=== PATIENT | female | born 1950 | race Caucasian/White ===

== ENCOUNTER 2020-10-24 11:44 | Outpatient (REF) | payer OTHER, SELFPAY | END 2020-10-24 11:45 | disposition home or self-care (01) | LOC: HO.LAB 11:44 | PROVIDERS: Visit Provider Internal Medicine | DX: Z20.822 Contact with and (suspected) exposure to COVID-19 (principal) | CPT/HCPCS: 36415; C9803; U0003; U0005 ==

== ENCOUNTER 2021-04-03 13:07 | Outpatient (REF) | payer OTHER, SELFPAY ==
--- NOTE | ~2021-04-03 | MM_ITS ---
EXAMINATION: MM SCREENING DIGITAL BREAST TOMOSYNTHESIS, BILATERAL CLINICAL INFORMATION: Screening. Asymptomatic. The lifetime risk of breast cancer based on the Tyrer-Cuzick Model is 3%. COMPARISON: Mammography: 03/29/2020, 03/10/2019, 03/09/2018 TECHNIQUE: Digital breast tomosynthesis is performed in both the craniocaudal and mediolateral oblique views along with computer-aided detection (CAD). Synthesized 2D images are generated from the tomosynthesis. FINDINGS: The breasts are heterogeneously dense, which may obscure small masses (ACR BI-RADS breast composition Category c). There are no significant masses, abnormal calcifications, or other abnormalities. Parenchymal pattern is similar to prior studies. No developing density. The axilla and skin contours are unremarkable. MM/MM tomosynthesis screening BI IMPRESSION: No mammographic evidence of malignancy. ASSESSMENT: BI-RADS 1: Negative RECOMMENDATION: Routine annual mammography screening. This patient's information was entered into a reminder system with a target due date for their next mammogram.
== END 2021-04-03 13:08 | disposition home or self-care (01) ==
LOC: HO.MAMMO 13:07
PROVIDERS: Visit Provider Internal Medicine
DX: Z12.31 Encounter for screening mammogram for malignant neoplasm of breast (principal)
CPT/HCPCS: 77062; 77063; 77066; 77067

== ENCOUNTER 2021-04-16 10:06 | Outpatient (REF) | payer OTHER, SELFPAY ==
[2021-04-16 11:24] LABS: Alanine Aminotransferase 17 U/L (0-31); Albumin Level 4.4 g/dL (3.5-5.0); Alkaline Phosphatase 49 U/L (39-117); Anion Gap 12 (12-20); Aspartate Amino Transferase 20 U/L (5-31); Bilirubin Total 0.8 mg/dL (0.0-1.0); Blood Urea Nitrogen 21 mg/dL (9-16); Calcium 9.4 mg/dL (8.4-10.2); Carbon Dioxide 30 mmol/L (22-29); Chloride 105 mmol/L (96-108); Cholesterol 176 mg/dL; Estimated Glomerular Filt Rate > 60; Glucose Fasting 96 mg/dL (60-99); HDL Cholesterol 62 mg/dL; LDL Cholesterol Calculated 104 mg/dl; Potassium 4.5 mmol/L (3.3-5.1); Sodium 142 mmol/L (135-145); Total Protein 7.3 g/dL (6.5-8.0); Triglycerides 54 mg/dL
== END 2021-04-16 10:07 | disposition home or self-care (01) ==
LOC: HO.LAB 10:06
PROVIDERS: PCP Internal Medicine; Visit Provider Internal Medicine
DX: E78.5 Hyperlipidemia, unspecified (principal)
CPT/HCPCS: 36415; 80053; 80061

== ENCOUNTER 2021-04-23 13:22 | Outpatient (REF) | payer OTHER, SELFPAY ==
--- NOTE | ~2021-04-23 | MM_ITS ---
EXAMINATION: BONE DENSITOMETRY CLINICAL INDICATION: Menopause. COMPARISON: Previous BD dated 11/15/2018 and baseline BD dated 12/23/2006. TECHNIQUE: Using a [employer] DXA System (software version: 13.1) manufactured by [employer], dual-energy x-ray absorptiometry was performed of the lumbar spine and left hip. The images are of good technical quality. Summary results are attached. FINDINGS: AP SPINE L1-L4: Current: BMD 1.022 g/cm2, Z-score 0.6, T-score -1.3, osteopenia, 0.4% decrease from previous, 11.1% decrease from baseline (<5% change is not significant). Prior: BMD 1.026 g/cm2. Baseline: BMD 1.150 g/cm2. LEFT FEMUR, NECK: Current: BMD 0.828 g/cm2, Z-score 0.4, T-score -1.5, osteopenia. Prior: BMD 0.877 g/cm2. Baseline: BMD 0.973 g/cm2. LEFT FEMUR, TOTAL: Current: BMD 0.829 g/cm2, Z-score 0.3, T-score -1.4, osteopenia, 5.3% decrease from previous, 18.6% decrease from baseline (<5% change is not significant). Prior: BMD 0.875 g/cm2. Baseline: BMD 1.019 g/cm2. IDENTIFIED RISK FACTORS: Menopause. HISTORY OF FRACTURE: None listed. MEDICATIONS: Calcium, vitamin D. MM/XR DEXA axial skeleton IMPRESSION: 1. DIAGNOSIS: Osteopenia based on the lowest T-score value of -1.5 in the femoral neck applying World Health Organization criteria. 2. 10-YEAR FRACTURE RISK PREDICTION, FRAX: Major osteoporotic fracture (clinical spine, forearm, hip or shoulder) 9.5%. Hip fracture 1.5%. 3. Treatment Recommendations: NOF guidelines recommend consideration for treatment in postmenopausal women and men age 50 and older presenting with the following: -A hip or vertebral (clinical or morphometric) fracture. -T-score less than or equal to -2.5 at the femoral neck or spine after appropriate evaluation to exclude secondary causes. -Low bone mass at the hip or spine and a 10-year fracture probability by FRAX of greater than or equal to 3% for hip fracture or greater than or equal to 20% for major osteoporotic fracture based on the [place] adapted WHO algorithm. 4. Other Recommendations: All treatment decisions require clinical judgment and consideration of individual patient factors, including patient preferences, comorbidities, previous drug use, risk factors not captured in the FRAX model (e.g. frailty, falls, vitamin D deficiency, increased bone turnover, interval significant decline in bone density) and possible under or overestimation of fracture risk by FRAX. Additional medical evaluation for secondary cause of low bone mineral density may be appropriate. FUTURE SCAN RECOMMENDATION: People with diagnosed cases of osteoporosis or at high risk for fracture should have regular bone mineral density tests. For patients eligible for Medicare, routine testing is allowed once every 2 years. The testing frequency can be increased to one year for patients who have rapidly progressing disease, those who are receiving or discontinuing medical therapy to restore bone mass, or have additional risk factors.
== END 2021-04-23 13:23 | disposition home or self-care (01) ==
LOC: HO.MAMMO 13:22
PROVIDERS: PCP Internal Medicine; Visit Provider Internal Medicine
DX: Z13.820 Encounter for screening for osteoporosis (principal); Z78.0 Asymptomatic menopausal state
CPT/HCPCS: 77080

== ENCOUNTER 2022-04-06 11:06 | Outpatient (REF) | payer OTHER, SELFPAY ==
--- NOTE | ~2022-04-06 | MM_ITS ---
EXAMINATION: MM SCREENING DIGITAL BREAST TOMOSYNTHESIS, BILATERAL CLINICAL INFORMATION: Screening. Asymptomatic. The lifetime risk of breast cancer based on the Tyrer-Cuzick Model is 3%. COMPARISON: Mammography: 04/03/2021, 04/08/2020, 03/29/2020, 04/09/2019 TECHNIQUE: Digital breast tomosynthesis is performed in both the craniocaudal and mediolateral oblique views along with computer-aided detection (CAD). Synthesized 2D images are generated from the tomosynthesis. Additional exaggerated left CC view is provided. FINDINGS: The breasts are heterogeneously dense, which may obscure small masses (ACR BI-RADS breast composition Category c). There are no significant masses, abnormal calcifications, or other abnormalities. Parenchymal pattern is similar to prior studies. The axilla and skin contours are unremarkable. MM/MM tomosynthesis screening BI IMPRESSION: No mammographic evidence of malignancy. ASSESSMENT: BI-RADS 1: Negative RECOMMENDATION: Routine annual mammography screening. This patient's information was entered into a reminder system with a target due date for their next mammogram.
== END 2022-04-06 11:07 | disposition home or self-care (01) ==
LOC: HO.MAMMO 11:06
PROVIDERS: Visit Provider Obstetrics & Gynecology
DX: Z12.31 Encounter for screening mammogram for malignant neoplasm of breast (principal)
CPT/HCPCS: 77063; 77067

== ENCOUNTER 2023-04-12 10:52 | Outpatient (REF) | payer OTHER, SELFPAY ==
--- NOTE | ~2023-04-12 | MM_ITS ---
EXAMINATION: MM SCREENING DIGITAL BREAST TOMOSYNTHESIS, BILATERAL CLINICAL INFORMATION: Screening. Asymptomatic. The lifetime risk of breast cancer based on the Tyrer-Cuzick Model is 5.%. COMPARISON: Mammography: This study is compared with prior exams dating back to 2018. TECHNIQUE: Digital breast tomosynthesis is performed in both the craniocaudal and mediolateral oblique views along with computer-aided detection (CAD). Synthesized 2D images are generated from the tomosynthesis. FINDINGS: There are scattered areas of fibroglandular density (ACR BI-RADS breast composition Category b). There are no significant masses, abnormal calcifications, or other abnormalities. MM/MM tomosynthesis screening BI IMPRESSION: No mammographic evidence of malignancy. ASSESSMENT: BI-RADS BI-RADS 1 - Negative RECOMMENDATION: Routine annual mammography screening. 1 year F/U This examination should not preclude the clinical evaluation of a suspicious palpable abnormality. This patient's information was entered into a reminder system with a target due date for their next mammogram.
== END 2023-04-12 10:53 | disposition home or self-care (01) ==
LOC: HO.MAMMO 10:52
PROVIDERS: PCP Internal Medicine; Visit Provider Internal Medicine
DX: Z12.31 Encounter for screening mammogram for malignant neoplasm of breast (principal)
CPT/HCPCS: 77063; 77067

== ENCOUNTER → 2023-04-12 11:00 | Outpatient (BNV) | payer OTHER, SELFPAY | PROVIDERS: PCP Internal Medicine; Visit Provider Radiology Diagnostic Radiology | DX: Z12.31 Encounter for screening mammogram for malignant neoplasm of breast (principal) | CPT/HCPCS: 77063; 77067 ==

== ENCOUNTER 2023-04-19 10:54 | Outpatient (REF) | payer OTHER, SELFPAY ==
[2023-04-19 14:25] LABS: Alanine Aminotransferase 24 U/L (0-31); Albumin Level 4.4 g/dL (3.5-5.0); Alkaline Phosphatase 48 U/L (39-117); Anion Gap 16 (12-20); Aspartate Amino Transferase 21 U/L (5-31); Bilirubin Total 0.8 mg/dL (0.0-1.0); Blood Urea Nitrogen 17 mg/dL (9-16); Calcium 9.5 mg/dL (8.4-10.2); Carbon Dioxide 27 mmol/L (22-29); Chloride 104 mmol/L (96-108); Cholesterol 203 mg/dL; Estimated Glomerular Filt Rate > 60; Glucose Fasting 88 mg/dL (60-99); HDL Cholesterol 65 mg/dL; LDL Cholesterol Calculated 122 mg/dl; Potassium 3.9 mmol/L (3.3-5.1); Sodium 143 mmol/L (135-145); Total Protein 7.7 g/dL (6.5-8.0); Triglycerides 81 mg/dL
== END 2023-04-19 10:55 | disposition home or self-care (01) ==
LOC: HO.10HDL 10:54
PROVIDERS: Visit Provider Internal Medicine
DX: Z00.00 Encounter for general adult medical examination without abnormal findings (principal); E78.5 Hyperlipidemia, unspecified
CPT/HCPCS: 36415; 80053; 80061

== ENCOUNTER 2023-04-27 10:07 | Outpatient (AMB) | payer OTHER, SELFPAY ==
--- NOTE | 2023-04-27 10:09 | A.OFFPC_ITS ---
Vital Signs 04/27/23 10:13 Height 5 ft 4 in Weight 122 lb BMI 20.9 BP 120/80 Blood Pressure Location Lt brachial Position Sitting Pulse 65 Pulse Source Pulse Oximeter Pulse Oximetry (%) 98 Oxygen Delivery Method Room Air Intake Visit Reasons: Annual Exam Intake Note: Patient is here today for a physical. Physician Chief Of Pathology Required: No Accompanied by: Self / Same As Patient Allergies cephalexin [From KEFLEX] Allergy (Intermediate, Verified 04/27/23 10:28) NAUSEA droperidol [From INAPSINE] Allergy (Intermediate, Verified 04/27/23 10:28) HYPOTENSION influenza virus vaccine, specific [FLU VACCINE] Allergy (Intermediate, Verified 04/27/23 10:28) HYPERTHERMIA metoclopramide [From REGLAN] Allergy (Intermediate, Verified 04/27/23 10:28) ANXIETY Inapsine Allergy (Severe, Uncoded 04/27/23 10:28) low bp Influenza A (H1N1) Monoval PF Allergy (Severe, Uncoded 04/27/23 10:28) high fever Medication List - Last Reconciled 04/27/23 by Bessie Pelayo MD loratadine (Claritin) 10 mg PO DAILY simvastatin 10 mg PO QPM Tobacco use date assessed: 04/27/23 Fall risk assessment: No Falls in past year Last assessed Fall Risk: 04/27/23 Dental Screening Did you have a dental visit in the last 12 months?: Yes Did you have a dental problem in the last 6 months where you did not have access to dental care?: No Was dental information given to patient?: Patient has dentist HPI HPI Comments History of Present Illness Details This is a 73-year-old female that comes for her physical exam. Last mammogram was done last month and results are still pending. Last colonoscopy was 2019 and next colonoscopy should be 2024. No chest pain or shortness of breath. No change in bowel or bladder habits. [facility]LY [facility] Medical History Allergic rhinitis Dyslipidemia Surgical History Basal cell carcinoma History of appendectomy History of bowel resection History of myomectomy Family History (Updated 04/27/23 @ 10:32 by Bessie Pelayo MD) Mother Dementia Hypertension Macular degeneration Father Heart attack Atrial fibrillation Sister Substance use disorder Social History Housing: House Alcohol intake: current Alcohol intake frequency: holidays/special occasions only Alcohol type: wine Patient Tobacco Use Status: Never used Tobacco e-Cigarette/Vaping Use: Never Used Second Hand Smoke Exposure: No service: No Current occupational status: retired Cognitive needs: No Hearing needs: No Vision needs: No Questionnaire PHQ-9 Over the last 2 weeks, how often have you been bothered by any of the following problems? 1. Little interest or pleasure in doing things: not at all 2. Feeling down, depressed, or hopeless: not at all 3. Trouble falling or staying asleep, or sleeping too much: not at all 4. Feeling tired or having little energy: not at all 5. Poor appetite or overeating: not at all 6. Feeling bad about yourself - or that you are a failure or have let yourself or your family down: not at all 7. Trouble concentrating on things, such as reading the newspaper or watching television: not at all 8. Moving or speaking so slowly that other people could have noticed. Or the opposite - being so fidgety or restless that you have been moving around a lot more than usual: not at all 9. Thoughts that you would be better off or of hurting yourself in some way: not at all Total score: 0 Depression Screening Interpretation: Negative 78629 - PHQ-9 Billing: Yes Source: Developed by Drs. Mike Salcido, Lydia Tom, Red Massey and colleagues, with an educational inderjit from [employer]. Thrive Questionnaire Date Thrive assessed: 04/27/23 I am a: Patient What is your living situation today?: I have a steady place to live Within the past 12 months, did the food you bought not last and you didn't have the money to get more?: I choose not to answer this question Within the past 12 months, did you worry whether your food would run out before you got money to buy more?: I choose not to answer this question Do you have trouble paying for medicines?: No Do you have trouble getting transportation to medical appointments?: No Do you have trouble paying your heating and electricity bill?: No Do you have trouble taking care of your child, family member or friend?: No Do you have trouble with day-to-day activities such as bathing, preparing meals, shopping, managing finances, etc.?: No Are you currently unemployed and looking for a job?: No Are you interested in more education?: No AUDIT C Alcohol Use Questionnaire (AUDIT-C) 1. How often do you have a drink containing alcohol?: Monthly or less 2. How many drinks containing alcohol do you have on a typical day when you are drinking?: 1 or 2 3. How often do you have six or more drinks on one occasion?: Never Total Score: 1 Score Reviewed/Action Taken: No PONCE-7 AMB Questionnaire PONCE-7 Date PONCE - 7 assessed: 04/27/23 Feeling nervous, anxious, or on edge: 0 = Not at all Not being able to stop or control worryin = Not at all Worrying too much about different things: 0 = Not at all Trouble relaxin = Not at all Being so restless that it is hard to sit still: 0 = Not at all Becoming easily annoyed or irritable: 0 = Not at all Feeling afraid as if something awful might happen: 0 = Not at all Total PONCE-7 score (0-4 normal; 5-9 mild; 10-14 moderate; 15-21 severe): 0 Source: Developed by Drs. Mike Salcido, Lydia Tom, Red Massey and colleagues, with an educational inderjit from [employer]. PONCE-7 Assessment Billing PONCE-7 Assessment Tool: PONCE-7 Assessment 50314 Review of Systems Const All systems reviewed & are unremarkable except as noted in HPI and below Eyes Reports no additional complaints, Denies change in vision and Denies other visual disturbances Card Denies chest pain at rest, Denies chest pain with activity, Denies edema, Denies irregular heart rhythm, Denies claudication, Denies dyspnea, Denies dyspnea on exertion, Denies orthopnea, Denies paroxysmal nocturnal dyspnea and Denies slow heart rate Resp Denies cough, Denies dyspnea and Denies dyspnea on exertion GI Denies abdominal pain, Denies change in bowel habits, Denies excessive flatus, Denies nausea and Denies vomiting Denies urinary incontinence, Denies urinary hesitancy and Denies urinary urgency Musc Denies abnormal gait, Denies atrophy, Denies deformity and Denies limited range of motion Skin/Breast Denies bleeding lesions, Denies changing lesions and Denies rash Neuro Denies abnormal gait and Denies lack of coordination Physical exam (Primary Care) Vital Signs: Last Vital Signs Pulse 65 04/27/23 10:13 BP 120/80 04/27/23 10:13 Pulse Ox 98 04/27/23 10:13 Oxygen Delivery Method Room Air 04/27/23 10:13 BMI result Body Mass Index 20.9 Tobacco/Smoking Status: Tobacco use Status Tobacco use date assessed 04/27/23 04/27/23 10:19 Patient Tobacco Use Status Never used Tobacco 04/27/23 10:09 e-Cigarette/Vaping Use Never Used 04/27/23 10:09 PHQ-9: PHQ-9 Score PHQ-9: Total score 0 04/27/23 10:19 Depression Screening Interpretation: Negative Thrive Assessment: Date of Thrive Assessment Date Thrive assessed 04/27/23 04/27/23 10:19 Const Orientation/consciousness: patient oriented x3 HENMT Head: Yes normal to inspection, Yes normocephalic and Yes atraumatic Ears: external ears normal Eyes General: appearance normal, both eyes and all related structures Eyelids: Yes eyelids normal Conjunctivae: conjunctivae normal Neck Neck: Yes normal visual inspection and Yes supple Resp Effort & Inspection: normal respiratory effort Auscultation: clear to auscultation bilaterally Cardio Jugular venous distension: no JVD Rate: regular rate Rhythm: regular rhythm Heart sounds: S1 normal heart sound present and S2 normal heart sound present GI Inspection: Yes normal to inspection Palpation (GI): Soft to palpation and nontender Auscultation: normal bowel sounds Skin General skin exam: no rashes or lesions noted Neuro General: patient oriented x3 and no focal motor deficits Extrem General: Yes full ROM Psych Appearance: grossly normal Assessment and Plan Assessment & Plan (1) Encounter for physical examination: Code(s): Z00.00 - Encounter for general adult medical examination without abnormal findings Plan: Repeat in a year Coding Level of Care Code Est Pt Prev Care >65y(72840) Diagnoses Encounter for physical examination Z00.00 Additional Codes PONCE-7 Assessment Billing - PONCE-7 Assessment Tool: PONCE-7 Assessment [id number] ([id number]) Time Spent (min) 30
[2023-04-27 10:13] VITALS: BP 120/80; PULSE 65; O2SAT 98; BMI 20.9
== END 2023-04-27 10:38 | disposition home or self-care (01) ==
PROVIDERS: PCP Internal Medicine; Visit Provider Internal Medicine
DX: Z00.00 Encounter for general adult medical examination without abnormal findings (principal)
CPT/HCPCS: 99397

== ENCOUNTER 2024-04-13 10:19 | Outpatient (REF) | payer OTHER, SELFPAY | END 2024-04-13 10:20 | disposition home or self-care (01) | LOC: HO.MAMMO 10:19 | PROVIDERS: PCP Internal Medicine; Visit Provider Internal Medicine | DX: Z12.31 Encounter for screening mammogram for malignant neoplasm of breast (principal) | CPT/HCPCS: 77063; 77067 ==

== ENCOUNTER → 2024-04-13 10:30 | Outpatient (BNV) | payer OTHER, SELFPAY | PROVIDERS: PCP Internal Medicine; Visit Provider Radiology Diagnostic Radiology | DX: Z12.31 Encounter for screening mammogram for malignant neoplasm of breast (principal) | CPT/HCPCS: 77063; 77067 ==

== ENCOUNTER 2024-04-25 11:23 | Outpatient (REF) | payer OTHER, SELFPAY ==
[2024-04-25 14:07] LABS: Alanine Aminotransferase 21 U/L (0-31); Albumin Level 4.2 g/dL (3.5-5.0); Alkaline Phosphatase 51 U/L (39-117); Anion Gap 12 (12-20); Aspartate Amino Transferase 20 U/L (5-31); Bilirubin Total 0.5 mg/dL (0.0-1.0); Blood Urea Nitrogen 18 mg/dL (9-16); Calcium 9.5 mg/dL (8.4-10.2); Carbon Dioxide 30 mmol/L (22-29); Chloride 104 mmol/L (96-108); Cholesterol 184 mg/dL (<200); Estimated Glomerular Filt Rate > 60; Glucose Fasting 101 mg/dL (60-99); HDL Cholesterol 60 mg/dL (>40); LDL Cholesterol Calculated 107 mg/dL (<100); Potassium 4.4 mmol/L (3.3-5.1); Sodium 142 mmol/L (135-145); Total Protein 7.3 g/dL (6.5-8.0); Triglycerides 87 mg/dL (<150)
[2024-04-25 14:27] LABS: Vitamin D 25-OH Total 78.8 ng/mL (>30)
== END 2024-04-25 11:24 | disposition home or self-care (01) ==
LOC: HO.10HDL 11:23
PROVIDERS: Visit Provider Internal Medicine
DX: Z00.00 Encounter for general adult medical examination without abnormal findings (principal); E78.5 Hyperlipidemia, unspecified; E55.9 Vitamin D deficiency, unspecified
CPT/HCPCS: 36415; 80053; 80061; 82306

== ENCOUNTER 2024-05-01 10:09 | Outpatient (AMB) | payer OTHER, SELFPAY ==
--- NOTE | 2024-05-01 10:12 | MHC.PC.OV ---
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 Accompanied by: Self / Same As Patient Allergies cephalexin [From KEFLEX] Allergy (Intermediate, Verified 05/01/24 10:27) NAUSEA droperidol [From INAPSINE] Allergy (Intermediate, Verified 05/01/24 10:27) HYPOTENSION influenza virus vaccine, specific [FLU VACCINE] Allergy (Intermediate, Verified 05/01/24 10:27) HYPERTHERMIA metoclopramide [From REGLAN] Allergy (Intermediate, Verified 05/01/24 10:27) ANXIETY Inapsine Allergy (Severe, Uncoded 05/01/24 10:27) low bp Influenza A (H1N1) Monoval PF Allergy (Severe, Uncoded 05/01/24 10:27) high fever Medication List - Last Reconciled 05/01/24 by Bessie Pelayo MD simvastatin 10 mg PO QPM Tobacco use date assessed: 05/01/24 Fall risk assessment: No Falls in past year Last assessed Fall Risk: 05/01/24 Dental Screening Dental Screen Date: 05/01/24 Did you have a dental visit in the last 12 months?: Yes Did you have a dental problem in the last 6 months where you did not have access to dental care?: No Was dental information given to patient?: Patient has dentist HPI HPI Comments History of Present Illness Details This is a 74-year-old female that comes for her physical exam. Mammogram done last month and results are still pending. Colonoscopy done 2019 and next should be 2024. Bone density done 2020 and will be order. Denies any chest pain or shortness on breath. No acute complaints. Labs were discussed. [facility] Medical History Allergic rhinitis Dyslipidemia Surgical History Basal cell carcinoma History of bowel resection History of appendectomy History of myomectomy Family History Mother Dementia Hypertension Macular degeneration Father Heart attack Atrial fibrillation Sister Substance use disorder Social History Housing: House Alcohol intake: current Alcohol intake frequency: holidays/special occasions only Alcohol type: wine Patient Tobacco Use Status: Never used Tobacco e-Cigarette/Vaping Use: Never Used Second Hand Smoke Exposure: No service: No Current occupational status: retired Cognitive needs: No Hearing needs: No Vision needs: No Questionnaire PHQ-9 Over the last 2 weeks, how often have you been bothered by any of the following problems? 1. Little interest or pleasure in doing things: not at all 2. Feeling down, depressed, or hopeless: not at all 3. Trouble falling or staying asleep, or sleeping too much: not at all 4. Feeling tired or having little energy: not at all 5. Poor appetite or overeating: not at all 6. Feeling bad about yourself - or that you are a failure or have let yourself or your family down: not at all 7. Trouble concentrating on things, such as reading the newspaper or watching television: not at all 8. Moving or speaking so slowly that other people could have noticed. Or the opposite - being so fidgety or restless that you have been moving around a lot more than usual: not at all 9. Thoughts that you would be better off or of hurting yourself in some way: not at all Total score: 0 Depression Screening Interpretation: Negative Depression Screening Done: Yes 78506 - PHQ-9 Billing: Yes Source: Developed by Drs. Mike Salcido, Lydia Tom, Red Massey and colleagues, with an educational inderjit from [employer] Thrive Questionnaire Date Thrive assessed: 05/01/24 I am a: Patient What is your living situation today?: I have a steady place to live Within the past 12 months, did the food you bought not last and you didn't have the money to get more?: Never true Within the past 12 months, did you worry whether your food would run out before you got money to buy more?: Never true Do you have trouble paying for medicines?: No Do you have trouble getting transportation to medical appointments?: No Do you have trouble paying your heating and electricity bill?: No Do you have trouble taking care of your child, family member or friend?: No Do you have trouble with day-to-day activities such as bathing, preparing meals, shopping, managing finances, etc.?: No Are you currently unemployed and looking for a job?: No Are you interested in more education?: No Please select the resources that you would like help with: None Currently or been in a relationship where the following occur: No concerns reported THRIVE Score: 0 AUDIT C Alcohol Use Questionnaire (AUDIT-C) 1. How often do you have a drink containing alcohol?: Monthly or less 2. How many drinks containing alcohol do you have on a typical day when you are drinking?: 1 or 2 3. How often do you have six or more drinks on one occasion?: Never Total Score: 1 Score Reviewed/Action Taken: No PONCE-7 AMB Questionnaire PONCE-7 Date PONCE - 7 assessed: 05/01/24 Feeling nervous, anxious, or on edge: 0 = Not at all Not being able to stop or control worryin = Not at all Worrying too much about different things: 0 = Not at all Trouble relaxin = Not at all Being so restless that it is hard to sit still: 0 = Not at all Becoming easily annoyed or irritable: 0 = Not at all Feeling afraid as if something awful might happen: 0 = Not at all Total PONCE-7 score (0-4 normal; 5-9 mild; 10-14 moderate; 15-21 severe): 0 Source: Developed by Drs. Mike Salcido, Lydia Tom, Red Massey and colleagues, with an educational inderjit from [employer] PONCE-7 Assessment Billing PONCE-7 Assessment Tool: PONCE-7 Assessment 11205 Review of Systems Const All systems reviewed & are unremarkable except as noted in HPI and below Card Denies chest pain at rest, Denies chest pain with activity, Denies edema, Denies irregular heart rhythm, Denies claudication, Denies dyspnea, Denies dyspnea on exertion, Denies orthopnea, Denies paroxysmal nocturnal dyspnea and Denies slow heart rate Resp Denies cough, Denies dyspnea and Denies dyspnea on exertion GI Denies abdominal pain, Denies change in bowel habits, Denies excessive flatus, Denies nausea and Denies vomiting Denies urinary incontinence, Denies urinary hesitancy and Denies urinary urgency Neuro Denies confusion Psych Denies confusion Physical exam (Primary Care) Vital Signs: Last Vital Signs BP 122/80 05/01/24 10:17 BMI result Body Mass Index 21.3 Tobacco/Smoking Status: Tobacco use Status Tobacco use date assessed 05/01/24 05/01/24 10:21 Patient Tobacco Use Status Never used Tobacco 05/01/24 10:12 e-Cigarette/Vaping Use Never Used 05/01/24 10:12 PHQ-9: PHQ-9 Score PHQ-9: Total score 0 05/01/24 11:08 Depression Screening Interpretation: Negative Thrive Assessment: Date of Thrive Assessment Date Thrive assessed 05/01/24 05/01/24 10:21 Currently or been in a relationship where the following occur: No concerns reported Const General: No confusion Orientation/consciousness: patient oriented x3 and No confusion HENMT Head: Yes normal to inspection, Yes normocephalic and Yes atraumatic Ears: external ears normal Eyes General: appearance normal, both eyes and all related structures Eyelids: Yes eyelids normal Conjunctivae: conjunctivae normal Neck Neck: Yes normal visual inspection and Yes supple Resp Effort & Inspection: normal respiratory effort Auscultation: clear to auscultation bilaterally Cardio Jugular venous distension: no JVD Rate: regular rate Rhythm: regular rhythm Heart sounds: S1 normal heart sound present and S2 normal heart sound present GI Inspection: Yes normal to inspection Palpation (GI): Soft to palpation and nontender Auscultation: normal bowel sounds Skin General skin exam: no rashes or lesions noted Neuro General: patient oriented x3, no focal motor deficits and No confusion Extrem General: Yes full ROM Psych Appearance: grossly normal Immunizations pneumoc 20-miky conj-dip cr(PF) 0.5 mL IM syringe Performing Provider: Bessie Pelayo MD Performing Location: [facility] Administered by: TANISHA Del Real on 05/01/24 10:49 Dose Route Admin Location Dispensed Lot Number Expiration Date [employer] 0.5 mL IM Right Deltoid 0.5 mL [id number] 02/18/25 4691-8135-80 WYETH/PFIZER VIS Given Date VIS Provided VIS Publication Date 05/01/24 Single Vaccine 21 Eligibility Eligibility Date Funding Source Not [facility] Eligible 05/01/24 Private tetanus-diphtheria toxoids-Td 2 Lf unit-2 Lf unit/0.5 mL IM suspension Performing Provider: Bessie Pelayo MD [facility] Administered by: TANISHA Del Real on 05/01/24 10:49 Dose Route Admin Location Dispensed Lot Number Expiration Date [employer] 0.5 mL IM Left Deltoid 0.5 mL [id number] 10/30/24 [address]-7 [employer] VIS Given Date VIS Provided VIS Publication Date 05/01/24 Single Vaccine 21 Eligibility Eligibility Date Funding Source Not [facility] Eligible 05/01/24 State funds Assessment and Plan Assessment & Plan (1) Encounter for physical examination: Code(s): Z00.00 - Encounter for general adult medical examination without abnormal findings Plan: Repeat in a year. Orders: Orders XR DEXA axial skeleton Today N95.9 - Unspecified menopausal and perimenopausal disorder Td State Immunization Today Z23 - Encounter for immunization Pneumococcal 20 Immunization Today Z23 - Encounter for immunization Coding Level of Care Code Est Pt Prev Care >65y(50193) Diagnoses Encounter for physical examination Z00.00 Additional Codes PONCE-7 Assessment Billing - PONCE-7 Assessment Tool: PONCE-7 Assessment 29317 ([id number]) Time Spent (min) 30
[2024-05-01 10:17] VITALS: BP 122/80; BMI 21.3
== END 2024-05-01 10:48 | disposition home or self-care (01) ==
PROVIDERS: PCP Internal Medicine; Visit Provider Internal Medicine
DX: Z00.00 Encounter for general adult medical examination without abnormal findings (principal); Z23 Encounter for immunization
CPT/HCPCS: 90471; 90472; 90677; 90714; 99397

== ENCOUNTER 2024-05-30 08:55 | Outpatient (REF) | payer OTHER, SELFPAY ==
--- NOTE | ~2024-05-30 | MM_ITS ---
EXAMINATION: BONE DENSITOMETRY CLINICAL INDICATION: Menopause. COMPARISON: Previous BD dated 04/23/2021 and baseline BD dated 12/23/2006. TECHNIQUE: Using a [employer] DXA System (software version: 13.1) manufactured by [employer] dual-energy x-ray absorptiometry was performed of the lumbar spine and left hip. The images are of good technical quality. Summary results are attached. FINDINGS: LEFT FEMUR, NECK: Current: BMD 0.829 g/cm2, Z-score 0.6, T-score -1.5, osteopenia. Prior: BMD 0.828 g/cm2. Baseline: BMD 0.973 g/cm2. LEFT FEMUR, TOTAL: Current: BMD 0.802 g/cm2, Z-score 0.2, T-score -1.6, osteopenia, 3.3% decrease from previous, 21.3% decrease from baseline (<5% change is not significant). Prior: BMD 0.829 g/cm2. Baseline: BMD 1.019 g/cm2. AP SPINE L1-L4: Current: BMD 0.963 g/cm2, Z-score 0.2, T-score -1.8, osteopenia, 5.8% decrease from previous, 16.3% decrease from baseline (<5% change is not significant). Prior: BMD 1.022 g/cm2. Baseline: BMD 1.150 g/cm2. IDENTIFIED RISK FACTORS: Menopause. HISTORY OF FRACTURE: None listed. MEDICATIONS: Calcium, vitamin D. MM/XR DEXA axial skeleton IMPRESSION: 1. DIAGNOSIS: Osteopenia based on the lowest T-score value of -1.8 in the lumbar spine applying World Health Organization criteria. 2. 10-YEAR FRACTURE RISK PREDICTION, FRAX: Major osteoporotic fracture (clinical spine, forearm, hip or shoulder) 10.0%. Hip fracture 2.0%. 3. Treatment Recommendations: NOF guidelines recommend consideration for treatment in postmenopausal women and men age 50 and older presenting with the following: -A hip or vertebral (clinical or morphometric) fracture. -T-score less than or equal to -2.5 at the femoral neck or spine after appropriate evaluation to exclude secondary causes. -Low bone mass at the hip or spine and a 10-year fracture probability by FRAX of greater than or equal to 3% for hip fracture or greater than or equal to 20% for major osteoporotic fracture based on the [place] adapted WHO algorithm. 4. Other Recommendations: All treatment decisions require clinical judgment and consideration of individual patient factors, including patient preferences, comorbidities, previous drug use, risk factors not captured in the FRAX model (e.g. frailty, falls, vitamin D deficiency, increased bone turnover, interval significant decline in bone density) and possible under or overestimation of fracture risk by FRAX. Additional medical evaluation for secondary cause of low bone mineral density may be appropriate. FUTURE SCAN RECOMMENDATION: People with diagnosed cases of osteoporosis or at high risk for fracture should have regular bone mineral density tests. For patients eligible for Medicare, routine testing is allowed once every 2 years. The testing frequency can be increased to one year for patients who have rapidly progressing disease, those who are receiving or discontinuing medical therapy to restore bone mass, or have additional risk factors. Electronically signed by: Kobi Kelsey MD 06/02/2024 09:09 AM MARLON RP
== END 2024-05-30 08:56 | disposition home or self-care (01) ==
LOC: HO.MAMMO 08:55
PROVIDERS: PCP Internal Medicine; Visit Provider Internal Medicine
DX: Z13.820 Encounter for screening for osteoporosis (principal); Z78.0 Asymptomatic menopausal state
CPT/HCPCS: 77080

== ENCOUNTER 2025-02-21 06:28 | Day surgery (SDC) | payer OTHER, SELFPAY ==
--- OUTSIDE RECORDS SUMMARY | 2025-01-29 13:04 | XMS_ITS | Patient Health Record ---
Author Organization [facility] Address [address] [place] [address] Care Team Providers Care Manufacturing Sales Representative Name Role Phone Bessie Bush Primary Care Provider Mike Caba Unavailable [phone] Allergies Allergen (clinical drug ingredient) Drug/Non Drug Allergy documented on EMR Reaction Allergy Type Onset Date Status Influenza Vac Split Quad Unknown Drug Allergy Active metoclopramide Reglan Unknown Drug Allergy Ac tive Keflex Unknown Drug Allergy Active Inapsine Unknown Drug Allergy Active Reason For Referral No Information Medications Medication SIG (Take, Route, Frequency, Duration) Notes Start Date End Date Status Vitamin E 100 UNIT 1 capsule Orally Onc e a day for 30 day(s) Active Hair Skin & Nails Advanced - as directed Orally Active Simvastatin 10 MG 1 tablet in the even ing Orally Once a day for 30 day(s) Active Super B Complex Acti ve Zinc 100 MG 1 tablet Orally Once a day Active Qunol CoQ10/Ubiquinol/Paul 100 MG as directed Orally Active Multivitamin Adults - as directed Orally Active Jayla Allergy 180 MG 1 tablet Swallow whole with water; do not take with fruit juices. Orally Once a day Active Calcium 1200 daily Active Vitamin D3 Active Collagen 600 Active Vitamin C 1000 MG 1 tablet Orally Once a day for 30 day(s) Active Immunizations Vaccine Route Administration Date Status Comme nts Influenza Unknown 08/22/2019 Refused Social History Tobacco Use: Social History Observation Description Date Details (start date - stop date) Never Smoker NA - NA Tobacco Use/Smoking Question Answer Notes Patient is a nonsmoker Alcohol Screen Question Answer Notes Did you have a drink contain ing alcohol in the past year? Yes How often did you have a dri nk containing alcohol in the past year? Never (0 point) How many drinks did you have on a typical day when you were drinking in the past year? 1 or 2 drinks (0 point) How often did you have 6 or more drinks on one occasion in the past year? Never (0 point) Points 0 Interpretation Negative Section Notes: Nonsmoker; very occasional d rink Nonsmoker; very occasional d rink Problems Problem Type SNOMED Code ICD Code Onset Dates Problem Status W/U Status Risk Notes Problem [id number] Encounter for screening for malignant neoplasm of colon (Z12.11) Active confirmed Problem History of polyp of colon (situation) (629109553) Personal history of colonic polyps (Z86.010) Active confirmed Problem [id number] Preprocedural examination (Z01.818) Active confirmed Vital Signs Blood pressure diastolic 11 mm Hg 11/07/2024 Height 64 in 11/07/2024 Blood pressure systolic 111 mm Hg 11/07/2024 Weight 125 lbs 11/07/2024 BMI 21.45 kg/m2 11/07/2024 Encounters Encounter Location Date Provider Diagnosis [facility] [address] [place] [address] 11/07/2024 Mike Meyers Preprocedural examination Z01.818 ; Personal history of colonic polyps Z86.010 and Encounter for screening for malignant neoplasm of colon Z12.11 Assessments Encounter Date Diagnosis (ICD Code) Assessment Notes Treatment Notes Treatment Clinical Notes Section Notes 11/07/2024 Personal history of colonic polyps (ICD-10 - Z86.010) Overall, Renee appears quite well. Given the finding of a small sessile serrated polyp just over 5 years ago, her good clinical appearance, and her age, I did recommend a followup colonoscopy for further screening purposes. We did review the rationale for this regard to colon cancer prevention. Full consent was obtained for this, including risks of bleeding and perforation. The procedure will be done with monitored anesthesia care. She was given the below instruction regarding adjustment of her medication for the procedure. Renee was comfortable with this plan. Thank you again for allowing me to participate in Renee's care. I shall continue to keep you advised of her progress. 11/07/2024 Preprocedural examination (ICD-10 - Z01.818) Overall, Renee appears quite well. Given the finding of a small sessile serrated polyp just over 5 years ago, her good clinical appearance, and her age, I did recommend a followup colonoscopy for further screening purposes. We did review the rationale for this regard to colon cancer prevention. Full consent was obtained for this, including risks of bleeding and perforation. The procedure will be done with monitored anesthesia care. She was given the below instruction regarding adjustment of her medication for the procedure. Renee was comfortable with this plan. Thank you again for allowing me to participate in Renee's care. I shall continue to keep you advised of her progress. 11/07/2024 Encounter for screening for malignant neoplasm of colon (ICD-10 - Z12.11) Stop fish oil for 1 week before the colonoscopy Overall, Renee appears quite well. Given the finding of a small sessile serrated polyp just over 5 years ago, her good clinical appearance, and her age, I did recommend a followup colonoscopy for further screening purposes. We did review the rationale for this regard to colon cancer prevention. Full consent was obtained for this, including risks of bleeding and perforation. The procedure will be done with monitored anesthesia care. She was given the below instruction regarding adjustment of her medication for the procedure. Renee was comfortable with this plan. Thank you again for allowing me to participate in Renee's care. I shall continue to keep you advised of her progress. Plan Of Treatment Future Test Test Name Order Date COLONOSCOPY 08/22/2019 COLONOSCOPY 11/07/2024 Next Appt Details Provider Name:Mike Meyers , 02/21/2025 07:30:00 AM, [address] [place] [address], [phone], Insurance Providers Payer Name Payer Address Payer Phone Subscriber Number Group Number Insured Name Patient Relationship to Insured Coverage Start Date Coverage End Date [facility] [address] [place] [phone] [id number] SUZANNE Yaya RENEE Self - patient is the insured Medical (General) History Medical History History ICD Code Denies PA,DM,CVA,Lung disease,renal dise ase Hyperlipidemia Neg. screening colonoscopy in 2007 Screening colonoscopy in Sep of 2019 with a small sessile serrated polyp removed from the ascending colon Surgical History Surgery Date(Month/Year) Basal call ca Tubal ligation Melanoma on back removed > 10 yrs ago Myomectomy/Uterine ablation Bowel resection for ischemic bowel [place] [address] Aguilar--- probably small intestine Appendectomy age 12
--- OUTSIDE RECORDS SUMMARY | 2025-01-29 13:05 | XMS_ITS ---
Author Organization [facility] Address [address] [place] [address] Care Team Providers Care Inspector [employer] Name Role Phone Bessie Bush Primary Care Provider UnavailMike Holder [phone] Allergies Allergen (clinical drug ingredient) Drug/Non Drug Allergy documented on EMR Reaction Allergy Type Onset Date Status Influenza Vac Split Quad Unknown Drug Allergy Active metoclopramide Reglan Unknown Drug Allergy Ac tive Keflex Unknown Drug Allergy Active Inapsine Unknown Drug Allergy Active REASON FOR VISIT Patient presents today for a colon screening Medications Medication SIG (Take, Route, Frequency, Duration) Notes Start Date End Date Status Zinc 100 MG 1 tablet Orally Once a day Active Qunol CoQ10/Ubiquinol/Paul 100 MG as directed Orally Active Multivitamin Adults - as directed Orally Active Jayla Allergy 180 MG 1 tablet Swallow whole with water; do not take with fruit juices. Orally Once a day Active Calcium 1200 daily Active Hair Skin & Nails Advanced - as directed Orally Active Vitamin D3 Active Collagen 600 Active Vitamin C 1000 MG 1 tablet Orally Once a day for 30 day(s) Active Vitamin E 100 UNIT 1 capsule Orally Onc e a day for 30 day(s) Active Simvastatin 10 MG 1 tablet in the even ing Orally Once a day for 30 day(s) Active Super B Complex Acti ve Social History Tobacco Use: Social History Observation [...] Section Notes: Nonsmoker; very occasional d rink Problems Problem Type SNOMED Code ICD Code Onset Dates Problem Status W/U Status Risk Notes Problem Personal history of colonic polyps (Z86.010) Active confirmed Vital Signs Blood pressure systolic 111 mm Hg 11/07/19 25 Blood pressure diastolic 11 mm Hg 025 Height 64 in 11/07/2024 Weight 125 lbs 11/07/2024 BMI 21.45 kg/m2 11/07/2024 Encounters Encounter Location Date Provider Diagnosis [facility] [address] [place] [address] 11/07/2024 Mike Meeyrs Preprocedural examination Z01.818 ; Personal history of colonic polyps Z86.010 and Encounter for screening for malignant neoplasm of colon Z12.11 Assessments Encounter Date Diagnosis (ICD Code) Assessment Notes Treatment Notes Treatment Clinical Notes Section Notes 11/07/2024 Preprocedural examination (ICD-10 - Z01.818) Overall, Margarette appears quite well. Given the finding of [...] adjustment of her medication for the procedure. Margarette was comfortable with this plan. Thank you again for allowing me to participate in Margarette's care. I shall continue to keep you advised of her progress. 11/07/2024 Personal history of colonic polyps (ICD-10 - Z86.010) Overall, Margarette appears quite well. Given the finding of [...] adjustment of her medication for the procedure. Margarette was comfortable with this plan. Thank you again for allowing me to participate in Margarette's care. I shall continue to keep you advised of her progress. 11/07/2024 Encounter for screening for malignant neoplasm of colon (ICD-10 - Z12.11) Stop fish oil for 1 week before the colonoscopy Overall, Margarette appears quite well. Given the finding of [...] adjustment of her medication for the procedure. Margarette was comfortable with this plan. Thank you again for allowing me to participate in Margarette's care. I shall continue to keep you advised of her progress. Plan Of Treatment Treatment Notes Assessment Notes Encounter for screening for malignant neoplasm of colon Stop fish oil for 1 week before the colonoscopy Future Test Test Name Order Date COLONOSCOPY 11/07/2024 Next Appt Details Follow Up: prn, Reason: Provider Name:Mike Meyers , 02/21/2025 07:30:00 AM, [address] [place] [address], [phone], Progress Notes * MARGARETTE KIRK MDOB:[birth year] (74 yo F)Acc No.[id number]:11/07/2024 Progress Notes Patient:?MARGARETTE KIRK Provider:?Mike Meyers MD :1950???Age:74 Y???Sex:Female D ate:11/07/2024 Address:[address] [place], [place] [id number] Pcp:Bessie Pelayo Subjective: * Chief Complaints: * ???Patient presents today fo r a colon screening * HPI: ???incontinence:? I saw Margarette in the office today for followup of her personal history of a colon polyp and need for colorectal cancer screening. I last saw Margarette in September of 2019, at which time she underwent a screening colonoscopy with removal of a small sessile serrated polyp. There was no evidence of any dysplasia or carcinoma. She presently feels very well. She enjoys a good appetite, without any significant heartburn or dysphagia. Her bowel movements have been regular and without any signs of bleeding. She denies abdominal pain, signs of jaundice, and unintentional weight loss. She denies any known family history of colon cancer. * ROS:?General/Constitutional:?Change in appetite?denies.?Chills?denies.?Fatigue?denies.?Ophthalmologic:?Comments?all negative.?ENT:?Comments?all negative.?Respiratory:?hemoptysis?denies.?Cough?denies.?Cardiovascular:?Chest pain?denies.?Orthopnea?denies.?Gastrointestinal:?Comments?See HPI for details.?Genitourinary:?Hematuria?denies.?Dysuria?denies.?Musculoskeletal:?Painful joints?denies.?Weakness?denies.?Skin:?Itching?denies.?Rash?denies.?Neurologic:?Headache?denies.?Seizures?denies.?Psychiatric:?Comments?all negative.? * Medical History:? * Surgical History:?Appendecto my age 12Bowel resection for ischemic bowel [place] [address] Aguilar--- probably small intestine Myomectomy/Uterine ablation Melanoma on back removed > 10 yrs ago Tubal ligation Basal call ca * Hospitalization/Major Diagno stic Procedure:? * Family History:?Father: dece ased, diagnosed with Heart disease.?Mother: .? No known hx of colon cancer. * Social History:?Tobacco Use:?Tobacco Use/Smoking?Patient is a?nonsmoker.?Drugs/Alcohol:?Alcohol Screen?Did you have a drink containing alcohol in the past year??Yes,?How often did you have a drink containing alcohol in the past year??Never (0 point),?How many drinks did you have on a typical day when you were drinking in the past year??1 or 2 drinks (0 point),?How often did you have 6 or more drinks on one occasion in the past year??Never (0 point),?Points?0,?Interpretation?Negative.?Miscellaneous:?Marital status: . Occupation: Retired RN at [employer]. ???Nonsmoker; very occasional drink. * Medications:?TakingAllegra A llergy 180 MG Tablet 1 tablet Swallow whole with water; do not take with fruit juices. Orally Once a day Zinc 100 MG Tablet 1 tablet Orally Once a day Multivitamin Adults - Tablet as directed Orally Simvastatin 10 MG Tablet 1 tablet in the evening Orally Once a day Super B Complex Vitamin E 100 UNIT Capsule 1 capsule Orally Once a day Hair Skin & Nails Advanced - Tablet as directed Orally Vitamin C 1000 MG Tablet 1 tablet Orally Once a day Vitamin D3 Collagen 600 mg Calcium 1200 mg daily Qunol CoQ10/Ubiquinol/Paul 100 MG Capsule as directed Orally Taking Jayla Allergy 180 MG Tablet 1 tablet Swallow whole with water; do not take with fruit juices. Orally Once a day Taking Zinc 100 MG Tablet 1 tablet Orally Once a day Taking Multivitamin Adults - Tablet as directed Orally Taking Simvastatin 10 MG Tablet 1 tablet in the evening Orally Once a day Taking Super B Complex Taking Vitamin E 100 UNIT Capsule 1 capsule Orally Once a day Taking Hair Skin & Nails Advanced - Tablet as directed Orally Taking Vitamin C 1000 MG Tablet 1 tablet Orally Once a day Taking Vitamin D3 Taking Collagen 600 mg Taking Calcium 1200 mg daily Taking Qunol CoQ10/Ubiquinol/Paul 100 MG Capsule as directed Orally DiscontinuedClaritin 10 MG Tablet 1 tablet Orally Once a day/as needed Medication List reviewed and reconciled with the patientDiscontinued Claritin 10 MG Tablet 1 tablet Orally Once a day/as needed Medication List reviewed and reconciled with the patient * Allergies:?KeflexInapsineReg lanInfluenza Vac Split Quadyes[Allergies Verified] Objective: * Vitals:?Wt: 125 lbs, Ht: 64 in, BMI: 21.45 Index, BP: 111/11 mm Hg, Wt-k.7. * Examination: ???General Examination: ?GENERAL APPEARANCE:?pleasant, well nourished, well developed, in no acute distress.?EYES:?sclera non-icteric.?ORAL CAVITY:?mucosa moist.?NECK/THYROID:?no cervical lymphadenopathy, neck supple.?SKIN:?nonjaundiced, no spider angiomata.?HEART:?S1, S2 normal.?LUNGS:?clear to auscultation bilaterally.?ABDOMEN:?normal bowel sounds, no guarding or rigidity, no guarding or rigidity, no masses palpable, soft, nontender, nondistended.?EXTREMITIES:?no edema.?NEUROLOGIC:?alert and oriented.? Assessment: * Assessment: 1.?Preprocedural examination - Z01.818 (Primary)???2.?Personal history of colonic polyps - Z86.010???3.?Encounter for screening for malignant neoplasm of colon - Z12.11??? Overall, Margarette appears alexandra te well. Given the finding of a small [...] adjustment of her medication for the procedure. Margarette was comfortable with this plan. Thank you again for allowing me to participate in Margarette's care. I shall continue to keep you advised of her progress. Plan: * Treatment: 2.?Encounter for screening for malignant neoplasm of colon?Procedure: COLONOSCOPY (Ordered for 11/07/2024)* with MACsched for 02/21/25 at 7:30 ammiralax Notes: Stop fish oil for 1 week before the colonoscopy?? * Procedure Codes:?3017F COLOR ECTAL CA SCREEN DOC [id number] TOBACCO [id number] BP SCR NOT PRFRM REC REASON NOS * Preventive Medicine:? ??Urinary Incontinence:?Urinary Incontinence?Assessment:?Absent.? ??Screenings:?Fall Risk Screening?Fall Risk Assessment:?No falls in the past year,?Screening:?No falls in the past year,?Assessment:?Not performed, no reason specified,?Plan of Care:?Not documented, no reason specified.? * Follow Up:?prn * * Sign off status: Completed true * Provider:?Mike Meyers MD Date:? 025 Generated for Rolo lee/Sulaiman/eTransmitting on:?01/29/2025 01:04 PM EDT History and Physical Notes * HPI (History of Present Illness) Category Sub-Category Detail Notes Category Not es incontinence I saw Margarette in the office today for followup of her personal history of a colon polyp and need for colorectal cancer screening. I last saw Margarette in September of 2019, at which time she underwent a screening colonoscopy with removal of a small sessile serrated polyp. There was no evidence of any dysplasia or carcinoma. She presently feels very well. She enjoys a good appetite, without any significant heartburn or dysphagia. Her bowel movements have been regular and without any signs of bleeding. She denies abdominal pain, signs of jaundice, and unintentional weight loss. She denies any known family history of colon cancer. Examination Category Sub-Category Detail Notes Category Not es General Examination GENERAL APPEARANCE: pleasant , well nourished, well developed, in no acute distress HEAD: EYES: sclera non-icteric EARS: NOSE: THROAT: NECK/THYROID: no cervical lymphade nopathy, neck supple HEART: S1, S2 normal CHEST: LUNGS: clear to auscultatio n bilaterally ABDOMEN: normal bowel sounds, no guarding or rigidity, no guarding or rigidity, no masses palpable, soft, nontender, nondistended NEUROLOGIC: alert and oriented SKIN: nonjaundiced, no spi ronda angiomata EXTREMITIES: no edema PERIPHERAL PULSES: BACK: BREASTS: MUSCULOSKELETAL: MALE GENITOURINARY: LYMPH NODES: RECTAL EXAM: FEMALE GENITOURINARY: ORAL CAVITY: mucosa moist
[2025-02-19 15:02] VITALS: BMI 21.5
--- NOTE | 2025-02-20 08:23 | P.CONAN_ITS ---
Documented by User: Nelly Rockwell NP 02/20/25 08:23 HPI - Anesthesia Eval Consult details Narrative: 74yo F for Colonoscopy PMFSH Active Problems Active Problems: All Active Problems Osteopenia (Acute) Encounter for physical examination (Acute) Allergic rhinitis (Acute) Dyslipidemia (Acute) Past Medical History Medical History Allergic rhinitis Dyslipidemia Family History Family History Mother Dementia Hypertension Macular degeneration Father Heart attack Atrial fibrillation Sister Substance use disorder Surgical History Surgical History H/O colonoscopy Hx of tubal ligation Basal cell carcinoma History of bowel resection History of appendectomy History of myomectomy Social History Social History Housing: House Alcohol intake: current Alcohol intake frequency: does not drink Alcohol type: wine Patient Tobacco Use Status: Never used Tobacco e-Cigarette/Vaping Use: Never Used Second Hand Smoke Exposure: No Have you been hit, kicked, punched, or otherwise hurt by someone within the past year? If so, by whom?: No Are you DNR?: No Advance Directives: No Advance Directives Information Provided: Yes service: No Current occupational status: retired Cognitive needs: No Hearing needs: No Vision needs: No Meds Allergies Allergy/AdvReac Type Severity Reaction Status Date / Time cephalexin [From KEFLEX] Allergy Intermediate NAUSEA Verified 05/01/24 10:27 droperidol [From INAPSINE] Allergy Intermediate HYPOTENSION Verified 05/01/24 10:27 influenza virus vaccine, Allergy Intermediate HYPERTHERMI Verified 05/01/24 10:27 specific A [FLU VACCINE] metoclopramide [From REGLAN] Allergy Intermediate ANXIETY Verified 05/01/24 10:27 Home Medications ?Medication ?Instructions ?Recorded ?Confirmed ?Last Taken ?Type fexofenadine 180 mg tablet 180 mg PO DAILY 02/19/25 02/19/25 Unknown History (Jayla Allergy) multivitamin 1 tab PO DAILY 02/19/25 02/19/25 Unknown History vitamin B complex 1 cap PO DAILY 02/19/25 02/19/25 Unknown History zinc acetate 50 mg (zinc) capsule 100 mg PO DAILY 02/19/25 02/19/25 Unknown History Exam Height,Weight and Vital Signs: Height 5 ft 4 in Weight 56.699 kg Assessment and Plan Assessment Anesthesia Assessment: Chart Reviewed Documented by User: Sarah Tabor MD 02/21/25 07:33 [facility] Past Medical History Medical History Allergic rhinitis Dyslipidemia Family History Family History Mother Dementia Hypertension Macular degeneration Father Heart attack Atrial fibrillation Sister Substance use disorder Surgical History Surgical History H/O colonoscopy Hx of tubal ligation Basal cell carcinoma History of bowel resection History of appendectomy History of myomectomy History of Problems with Anesthesia: No Social History Social History Housing: House Alcohol intake: current Alcohol intake frequency: does not drink Alcohol type: wine Patient Tobacco Use Status: Never used Tobacco e-Cigarette/Vaping Use: Never Used Second Hand Smoke Exposure: No Have you been hit, kicked, punched, or otherwise hurt by someone within the past year? If so, by whom?: No Are you DNR?: No Advance Directives: No Advance Directives Information Provided: Yes service: No Current occupational status: retired Cognitive needs: No Hearing needs: No Vision needs: No Meds Allergies Allergy/AdvReac Type Severity Reaction Status Date / Time cephalexin [From KEFLEX] Allergy Intermediate NAUSEA Verified 05/01/24 10:27 droperidol [From INAPSINE] Allergy Intermediate HYPOTENSION Verified 05/01/24 10:27 influenza virus vaccine, Allergy Intermediate HYPERTHERMI Verified 05/01/24 10:27 specific A [FLU VACCINE] metoclopramide [From REGLAN] Allergy Intermediate ANXIETY Verified 05/01/24 10:27 Home Medications ?Medication ?Instructions ?Recorded ?Confirmed ?Last Taken ?Type fexofenadine 180 mg tablet 180 mg PO DAILY 02/19/25 02/19/25 Unknown History (Jayla Allergy) multivitamin 1 tab PO DAILY 02/19/25 02/19/25 Unknown History vitamin B complex 1 cap PO DAILY 02/19/25 02/19/25 Unknown History zinc acetate 50 mg (zinc) capsule 100 mg PO DAILY 02/19/25 02/19/25 Unknown History Exam Airway Mallampati Class: II TM Dist: >3cm Neck ROM: Full Loose/Missing/Broken Teeth: No Heart: RRR Lungs: CTA Assessment and Plan Assessment Anesthesia Assessment: Anesthesia Plan Discussed Final Anesthetic Review History of Problems with Anesthesia: No NPO: Yes ASA Class: II Final Preanesthetic Review: Meds/Allgs Chart Reviewed, Consent Obtained/Reviewed and Anes Risks/Benef Reviewed Patient Risk: Low Procedure Risk: Low Anesthetic Plan Anesthetic Plan: MAC: Disposition: Standard PACU
[2025-02-21 06:33] VITALS: BP 123/60; PULSE 67; RESP 18; TEMP 36.9; O2SAT 97; BMI 20.1
[2025-02-21] MEDS: Lactated Ringers 1,000 ML 100 ML IVCONT (06:59)
[2025-02-21 08:33] VITALS: BP 114/68; PULSE 68; RESP 18; TEMP 36.4; O2SAT 100
--- NOTE | 2025-02-21 08:38 | P.BOP_ITS ---
Brief Operative Note Date of Service: 02/21/25 Pre-op diagnosis: Screening Post-op diagnosis: other (Diverticulosis) Procedure: Colonoscopy to the cecum Surgeon: Mike Meyers MD Anesthesia: MAC Was an Logging Tractor Operator Swamp used for this Procedure?: No Estimated blood loss (mL): 0 Pathology: none sent Condition: stable Disposition: PACU
[2025-02-21 08:48] VITALS: BP 125/59; PULSE 72; RESP 18; TEMP 36.9; O2SAT 100
--- NOTE | 2025-02-21 08:51 | OP_ITS ---
DATE OF SERVICE: 02/21/2025 SURGEON: Mike Meyers MD INDICATIONS: The patient presents for evaluation of personal history of colon polyp and need for colorectal cancer screening. Full consent was obtained from her for this, including risks of bleeding and perforation. PREOPERATIVE DIAGNOSIS: POSTOPERATIVE DIAGNOSIS: PROCEDURE PERFORMED: Colonoscopy to cecum. ESTIMATED BLOOD LOSS: COMPLICATIONS: ANESTHESIA: Medication used, monitored anesthesia care. ASSISTANTS: SPECIMENS: PREOPERATIVE DIAGNOSES: Colorectal cancer screening and personal history of colon polyp. POSTOPERATIVE DIAGNOSES: Diverticulosis and internal hemorrhoids. DESCRIPTION OF PROCEDURE: The patient was placed in left lateral decubitus position. The digital rectal exam revealed no abnormalities. The Olympus video pediatric colonoscope was entered into the rectum and advanced easily to the cecum. Once in the cecum I did identify normal-appearing cecal pouch with appendiceal orifice and a normal-appearing ileocecal valve. The entire cecum and ileocecal valve appeared normal. The scope was slowly withdrawn assessing all mucosal surfaces carefully. Preparation was excellent. I did not visualize any sign of polyps, colitis, nor angiodysplasia. There was a mild amount of sigmoid diverticulosis. In the rectum, scope was retroflexed visualizing internal hemorrhoids, but no other pathology. The rectal mucosa appeared normal. The scope was straightened and withdrawn from the patient. She tolerated procedure well and was returned to recovery area in stable condition. IMPRESSION: 1. Diverticulosis. 2. Internal hemorrhoids. PLAN: Given today's negative exam and her age, I do not think she would need any further screening colonoscopies in the future. She will otherwise see me on a p.r.n. basis. MD CARMINA Collazo/NANCYL / [phone]
== END 2025-02-21 09:26 | disposition home or self-care (01) ==
PROVIDERS: PCP Internal Medicine; Visit Provider Internal Medicine
PROC: 0DJD8ZZ Inspection of Lower Intestinal Tract, Via Natural or Artificial Opening Endoscopic (ICD-10-PCS; CPT 45378; principal; 2025-02-21 07:30)
DX: Z12.11 Encounter for screening for malignant neoplasm of colon (principal); Z86.0101 Personal history of adenomatous and serrated colon polyps; K57.30 Diverticulosis of large intestine without perforation or abscess without bleeding; K64.8 Other hemorrhoids; E78.5 Hyperlipidemia, unspecified; J30.9 Allergic rhinitis, unspecified; Z85.828 Personal history of other malignant neoplasm of skin; Z79.899 Other long term (current) drug therapy; Z88.1 Allergy status to other antibiotic agents; Z88.8 Allergy status to other drugs, medicaments and biological substances; Z88.7 Allergy status to serum and vaccine; Z90.49 Acquired absence of other specified parts of digestive tract; Z98.890 Other specified postprocedural states
CPT/HCPCS: 45378; J2003; J2704

== ENCOUNTER 2025-05-02 13:55 | Outpatient (REF) | payer OTHER, SELFPAY ==
--- NOTE | ~2025-05-02 | MM_ITS ---
EXAMINATION: MM SCREENING DIGITAL BREAST TOMOSYNTHESIS, BILATERAL CLINICAL INFORMATION: Screening. Asymptomatic. COMPARISON: Comparison made to multiple prior, most recent April 13, 2024, and most remote March 10, 2019. TECHNIQUE: Digital breast tomosynthesis is performed in both the craniocaudal and mediolateral oblique views along with computer-aided detection (CAD). FINDINGS: BREAST COMPOSITION: The breasts are heterogeneously dense, which may obscure small masses (ACR BI-RADS breast composition Category c). BILATERAL BREASTS: No significant masses, suspicious calcifications or other abnormalities are seen in either breast. MM/MM tomosynthesis screening BI IMPRESSION: BILATERAL BREASTS: Negative, no mammographic evidence of malignancy. Normal interval follow-up is recommended in 12 months. ASSESSMENT: BI-RADS 1 - Negative RECOMMENDATION: Routine annual mammography screening. FOLLOW-UP: 1 year F/U This examination should not preclude the clinical evaluation of a suspicious palpable abnormality. This patient's information was entered into a reminder system with a target due date for their next mammogram. Electronically signed by: Ying Funez MD 05/07/2025 08:28 PM EDT
--- OUTSIDE RECORDS SUMMARY | 2025-05-02 14:17 | XMS_ITS | Patient Health Record ---
Author Organization [facility] Address [address] [place] [address] Care Team Providers Care Welfare Worker Name Role Phone Bessie Bush Primary Care Provider Mike Caba Unavailable [phone] Allergies Allergen (clinical drug ingredient) Drug/Non Drug [...] Problem Status W/U Status Risk Notes Problem [id number] Encounter for screening for malignant neoplasm of colon (Z12.11) Active confirmed Problem History of polyp of colon (situation) (177810158) Personal history of colonic polyps (Z86.010) Active confirmed Problem [id number] Preprocedural examination (Z01.818) Active confirmed Vital Signs Blood pressure diastolic 11 mm Hg 11/07/2024 Height 64 in 11/07/2024 Blood pressure systolic 111 mm Hg 11/07/2024 Weight 125 lbs 11/07/2024 BMI 21.45 kg/m2 11/07/2024 Encounters Encounter Location Date Provider Diagnosis [facility] Outpatient [address] [place], [place] [phone] 02/21/2025 Mike Meyers Colon cancer screeni ng Z12.11 ; History of colon polyps Z86.0100 ; Diverticulosis of colon K57.30 and Internal hemorrhoids K64.8 [facility] [address] [facility] [address] [place] [address] 11/07/2024 Mike Meyers Preprocedural examination Z01.818 ; Personal history of colonic polyps Z86.010 and Encounter for screening for malignant neoplasm of colon Z12.11 Assessments Encounter Date Diagnosis (ICD Code) Assessment Notes Treatment Notes Treatment Clinical Notes Section Notes 02/21/2025 Colon cancer screening (ICD-10 - Z12.11) 02/21/2025 History of colon polyps (ICD-10 - Z86.0100) 11/07/2024 Personal history of colonic polyps (ICD-10 [...] to keep you advised of her progress. 02/21/2025 Diverticulosis of colon (ICD-10 - K57.30) 11/07/2024 Encounter for screening for malignant neoplasm [...] to keep you advised of her progress. 02/21/2025 Internal hemorrhoids (ICD-10 - K64.8) Plan Of Treatment Future Test Test Name Order Date COLONOSCOPY 08/22/2019 COLONOSCOPY 11/07/2024 Insurance Providers Payer Name Payer Address Payer Phone Subscriber Number Group Number Insured Name Patient Relationship to Insured Coverage Start Date Coverage End Date [facility] [address] [facility] [place] [phone] [id number] RENEE MACARIO Self - patient is the insured Medical (General) History Medical History History ICD Code Denies MT,DM,CVA,Lung disease,renal dise ase Hyperlipidemia Neg. screening colonoscopy [...]
--- OUTSIDE RECORDS SUMMARY | 2025-05-02 14:17 | XMS_ITS | Clinical Summary ---
Author Organization [facility] ity Address [address] [place] [phone] Care Team Providers Care Food Technology Teacher Name Role Phone Unavailable Primary Care Provider Unavailabl e Social History Tobacco Use Types Packs/Day Years Used Date Smoking Tobacco: Never Assessed Comments Unknown Sex and Gender Information Value Date Recorded Sex Assigned at Not on file Legal Sex Female 4:04 PM EST Gender Identity Not on file Sexual Orientation Not on file Plan of Treatment Health Maintenance Due Date Last Done Comments DTaP,Tdap,and Td Vaccines (1 - Tdap) 1969 Pneumococcal Vaccine: 50+ Ye ars (1 of 1 - PCV) 2000 Zoster Vaccines (1 of 2) 2000 COVID-19 Vaccine (1 - 2023-2 5 season) 2024 Depression Screening 09/20/2024 RSV Immunization Adult Patie nts (1 - 1-dose 75+ series) 2025 Influenza Vaccine (#1) 2025 HIB Vaccines Aged Out No longer eligi ble based on patient's age to complete this topic HPV Vaccines Aged Out No longer eligi ble based on patient's age to complete this topic Hepatitis A Vaccines Aged Out No long er eligible based on patient's age to complete this topic Hepatitis B Vaccines Aged Out No long er eligible based on patient's age to complete this topic IPV Vaccines Aged Out No longer eligi ble based on patient's age to complete this topic MMR Vaccines Aged Out No longer eligi ble based on patient's age to complete this topic Meningococcal ACWY Vaccine Aged Out N o longer eligible based on patient's age to complete this topic Meningococcal B Vaccine Aged Out No l onger eligible based on patient's age to complete this topic RSV Immunization Patients Un ronda 20 months Aged Out No longer eligible b ased on patient's age to complete this topic Varicella Vaccines Aged Out No longer eligible based on patient's age to complete this topic
== END 2025-05-02 13:56 | disposition home or self-care (01) ==
LOC: HO.MAMMO 13:55
PROVIDERS: PCP Internal Medicine; Visit Provider Internal Medicine
DX: Z12.31 Encounter for screening mammogram for malignant neoplasm of breast (principal)
CPT/HCPCS: 77063; 77067

== ENCOUNTER → 2025-05-02 14:00 | Outpatient (BNV) | payer OTHER, SELFPAY | PROVIDERS: PCP Internal Medicine; Visit Provider Radiology Body Imaging | DX: Z12.31 Encounter for screening mammogram for malignant neoplasm of breast (principal) | CPT/HCPCS: 77063; 77067 ==

== ENCOUNTER 2025-05-03 15:59 | Outpatient (AMB) | payer OTHER, SELFPAY ==
[2025-05-03 16:00] VITALS: BP 128/66; PULSE 74; RESP 18; O2SAT 99
--- NOTE | 2025-05-03 16:00 | A.OFFPC_ITS ---
Vital Signs 05/03/25 16:00 Height 5 ft 4 in Weight 116 lb 4 oz BMI 20.0 BP 128/66 Blood Pressure Location Lt brachial Position Sitting Respiration 18 Pulse 74 Pulse Source Pulse Oximeter Temp Source Temporal Artery Scan Pulse Oximetry (%) 99 Oxygen Delivery Method Room Air Intake Visit Reasons: PE Behavior Support Specialist Required: No Accompanied by: Self / Same As Patient Allergies cephalexin (From KEFLEX) Allergy (Intermediate, Verified 05/03/25 16:18) NAUSEA droperidol (From INAPSINE) Allergy (Intermediate, Verified 05/03/25 16:18) HYPOTENSION influenza virus vaccine, specific (FLU VACCINE) Allergy (Intermediate, Verified 05/03/25 16:18) HYPERTHERMIA metoclopramide (From REGLAN) Allergy (Intermediate, Verified 05/03/25 16:18) ANXIETY Medication List - Last Reconciled 05/03/25 by Bessie Pelayo MD calcium carbonate-vitamin D3 500 mg-10 mcg (400 unit) (Oyster Shell Calcium- Vitamin D3) 2 tabs PO DAILY 90 days fexofenadine (Jayla Allergy) 180 mg PO DAILY multivitamin 1 tab PO DAILY simvastatin 10 mg PO QPM vitamin B complex 1 cap PO DAILY zinc acetate 100 mg PO DAILY Tobacco use date assessed: 05/03/25 Fall risk assessment: No Falls in past year Last assessed Fall Risk: 05/03/25 Dental Screening Dental Screen Date: 05/03/25 Did you have a dental visit in the last 12 months?: Yes Did you have a dental problem in the last 6 months where you did not have access to dental care?: No Was dental information given to patient?: Patient has dentist HPI HPI Comments History of Present Illness Details The patient is a 75-year-old female presenting for a physical examination and preventative care measures. She received the pneumonia vaccine at 74 years old and the Tdap vaccine last year, which is effective for 10 years. Her mammogram was conducted this month, with results pending, and she underwent a colonoscopy this year revealing diverticulosis and internal hemorrhoids. A bone density test last year indicated osteopenia, and she is currently on calcium with vitamin D supplementation. The next bone density test is scheduled for 2025. Her surgical history includes tubal ligation, removal of basal cell carcinoma, bowel resection, appendectomy, myomectomy, and excision of melanoma in situ. She undergoes dermatological evaluations every six months due to her history of skin cancer. Family history reveals her mother, who is 100 years old, has Alzheimer's disease, hypertension, and macular degeneration, while her father, who at 52, had atrial fibrillation and a myocardial infarction. The patient denies smoking and consumes alcohol only on special occasions. [facility] Medical History Allergic rhinitis Dyslipidemia Surgical History (Updated 05/03/25 @ 16:25 by Bessie Pelayo MD) H/O melanoma excision H/O colonoscopy Hx of tubal ligation Basal cell carcinoma History of bowel resection History of appendectomy History of myomectomy Family History Mother Dementia Hypertension Macular degeneration Father Heart attack Atrial fibrillation Sister Substance use disorder Social History (Updated 05/03/25 @ 16:27 by Bessie Pelayo MD) Housing: House Alcohol intake: current Alcohol intake frequency: does not drink Alcohol type: wine Patient Tobacco Use Status: Never used Tobacco e-Cigarette/Vaping Use: Never Used Second Hand Smoke Exposure: No service: No Current occupational status: retired Cognitive needs: No Hearing needs: No Vision needs: No Questionnaire PHQ-9 Over the last 2 weeks, how often have you been bothered by any of the following problems? 1. Little interest or pleasure in doing things: not at all 2. Feeling down, depressed, or hopeless: not at all 3. Trouble falling or staying asleep, or sleeping too much: not at all 4. Feeling tired or having little energy: not at all 5. Poor appetite or overeating: not at all 6. Feeling bad about yourself - or that you are a failure or have let yourself or your family down: not at all 7. Trouble concentrating on things, such as reading the newspaper or watching television: not at all 8. Moving or speaking so slowly that other people could have noticed. Or the opposite - being so fidgety or restless that you have been moving around a lot more than usual: not at all 9. Thoughts that you would be better off or of hurting yourself in some way: not at all Total score: 0 Depression Screening Interpretation: Negative Depression Screening Done: Yes 43130 - PHQ-9 Billing: Yes Source: Developed by Lydia Yu, Red Massey and colleagues, with an educational inderjit from [employer] [place]. Thrive Questionnaire Date Thrive assessed: 05/03/25 I am a: Patient What is your living situation today?: I have a steady place to live Within the past 12 months, did the food you bought not last and you didn't have the money to get more?: Never true Within the past 12 months, did you worry whether your food would run out before you got money to buy more?: Never true Do you have trouble paying for medicines?: No Do you have trouble getting transportation to medical appointments?: No Do you have trouble paying your heating and electricity bill?: No Do you have trouble taking care of your child, family member or friend?: No Do you have trouble with day-to-day activities such as bathing, preparing meals, shopping, managing finances, etc.?: No Are you currently unemployed and looking for a job?: No Are you interested in more education?: No Please select the resources that you would like help with: None Currently or been in a relationship where the following occur: No concerns reported THRIVE Score: 0 AUDIT C Alcohol Use Questionnaire (AUDIT-C) 1. How often do you have a drink containing alcohol?: Never 3. How often do you have six or more drinks on one occasion?: Never Total Score: 0 Score Reviewed/Action Taken: No PONCE-7 AMB Questionnaire PONCE-7 Date PONCE - 7 assessed: 05/03/25 Feeling nervous, anxious, or on edge: 0 = Not at all Not being able to stop or control worryin = Not at all Worrying too much about different things: 0 = Not at all Trouble relaxin = Not at all Being so restless that it is hard to sit still: 0 = Not at all Becoming easily annoyed or irritable: 0 = Not at all Feeling afraid as if something awful might happen: 0 = Not at all Total PONCE-7 score (0-4 normal; 5-9 mild; 10-14 moderate; 15-21 severe): 0 Source: Developed by Lydia Yu Kurt Kroenke and colleagues, with an educational inderjit from [employer] [place]. PONCE-7 Assessment Billing PONCE-7 Assessment Tool: PONCE-7 Assessment 46239 Review of Systems Const All systems reviewed & are unremarkable except as noted in HPI and below Card Denies chest pain at rest, Denies chest pain with activity, Denies edema, Denies irregular heart rhythm, Denies claudication, Denies dyspnea, Denies dyspnea on exertion, Denies orthopnea, Denies paroxysmal nocturnal dyspnea and Denies slow heart rate Resp Denies cough, Denies dyspnea and Denies dyspnea on exertion GI Denies abdominal pain, Denies change in bowel habits, Denies excessive flatus, Denies nausea and Denies vomiting Denies urinary incontinence, Denies urinary hesitancy and Denies urinary urgency Musc Denies abnormal gait, Denies atrophy, Denies deformity and Denies limited range of motion Skin/Breast Denies bleeding lesions, Denies changing lesions and Denies rash Neuro Denies abnormal gait, Denies behavioral changes and Denies lack of coordination Psych Denies behavioral changes Physical exam (Primary Care) Vital Signs: Last Vital Signs Pulse 74 05/03/25 16:00 Resp 18 05/03/25 16:00 BP 128/66 05/03/25 16:00 Pulse Ox 99 05/03/25 16:00 Oxygen Delivery Method Room Air 05/03/25 16:00 BMI result Body Mass Index 20.0 Tobacco/Smoking Status: Tobacco use Status Tobacco use date assessed 05/03/25 05/03/25 16:09 Patient Tobacco Use Status Never used Tobacco 05/03/25 16:27 e-Cigarette/Vaping Use Never Used 05/03/25 16:27 PHQ-9: PHQ-9 Score PHQ-9: Total score 0 05/03/25 16:23 Depression Screening Interpretation: Negative Thrive Assessment: Date of Thrive Assessment Date Thrive assessed 05/03/25 05/03/25 16:09 Currently or been in a relationship where the following occur: No concerns reported [facility] Head: Yes normal to inspection, Yes normocephalic and Yes atraumatic Ears: external ears normal Eyes General: appearance normal, both eyes and all related structures Eyelids: Yes eyelids normal Conjunctivae: conjunctivae normal Neck Neck: Yes normal visual inspection and Yes supple Resp Effort & Inspection: normal respiratory effort Auscultation: clear to auscultation bilaterally Cardio Jugular venous distension: no JVD Rate: regular rate Rhythm: regular rhythm Heart sounds: S1 normal heart sound present and S2 normal heart sound present GI Inspection: Yes normal to inspection Palpation (GI): Soft to palpation and nontender Auscultation: normal bowel sounds Skin General skin exam: no rashes or lesions noted Neuro General: no focal motor deficits Extrem General: Yes full ROM Psych Appearance: grossly normal Coding Level of Care Code Est Pt Prev Care >65y(42029) Diagnoses Encounter for physical examination Z00. Additional Codes PONCE-7 Assessment Billing - PONCE-7 Assessment Tool: PONCE-7 Assessment 79948 ([id number]) PHQ-9 - 22091 - PHQ-9 Billing: Yes ([id number]) Time Spent (min) 30 Assessment & Plan Assessment & Plan (1) Encounter for physical examination: Code(s): Z00. - Encounter for general adult medical examination without abnormal findings Category: Medical Plan The patient will continue with calcium and vitamin D supplementation to manage osteopenia, with a follow-up bone density test scheduled for 2025. Regular dermatological evaluations every six months are advised due to her history of basal cell carcinoma and melanoma in situ. Preventative care measures include maintaining up-to-date vaccinations, with the pneumonia and Tdap vaccines already administered. The patient is advised to follow up on the pending mammogram results and no further colonoscopy is required due to age. Patient was informed and verbally consented to the use of an ambient scribe for clinic note documentation during this visit. Orders: Orders Comprehensive [place]. Panel Fast Today Z00.00 - Encounter for general adult medical examination without abnormal findings Lipid Panel Today E78.5 - Hyperlipidemia, unspecified Medications: New cetirizine (Allergy Relief (cetirizine)) 10 mg PO DAILY PRN 90 tabs 1RF allergy symptoms 90 days
--- OUTSIDE RECORDS SUMMARY | 2025-05-03 16:06 | XMS_ITS | Clinical Summary ---
Author Organization [facility] ity Address [address] [place] [phone] Care Team Providers Care Supervisor Pre Wave Name Role Phone Unavailable Primary Care Provider [...]
--- OUTSIDE RECORDS SUMMARY | 2025-05-03 16:06 | XMS_ITS | Patient Health Record ---
Author Organization [facility] Address [address] [place] [address] Care Team Providers Care Restaurant Kitchen Manager Name Role Phone Bessie Bush Primary Care Provider Mike Caba Unavailable [phone] Allergies Allergen (clinical drug ingredient) Drug/Non Drug [...] Problem Status W/U Status Risk Notes Problem [id number] Encounter for screening for malignant neoplasm of colon (Z12.11) Active confirmed Problem Personal history of colonic polyps (Z86.010) Active confirmed Problem [id number] Preprocedural examination (Z01.818) Active confirmed Vital Signs Blood pressure diastolic 11 mm Hg 11/07/2024 Height 64 in 11/07/2024 Blood pressure systolic 111 mm Hg 11/07/2024 Weight 125 lbs 11/07/2024 BMI 21.45 kg/m2 11/07/2024 Encounters Encounter Location Date Provider Diagnosis [facility] Outpatient [address] [place], [place] [id number] 02/21/2025 Mike Meyers Colon cancer screeni ng Z12.11 ; History of colon polyps Z86.0100 ; Diverticulosis of colon K57.30 and Internal hemorrhoids K64.8 [facility] [address] [place] [address] 11/07/2024 Mike Meyers Preprocedural examination Z01.818 ; [...] Insured Coverage Start Date Coverage End Date [facility] [address] [place] [phone] [id number] RENEE MACARIO Self - patient is the insured Medical (General) History Medical History History ICD Code Denies [place],DM,CVA,Lung disease,renal dise ase Hyperlipidemia Neg. screening colonoscopy [...]
== END 2025-05-03 16:32 | disposition home or self-care (01) ==
LOC: HO.HMCH 16:00
PROVIDERS: PCP Internal Medicine; Visit Provider Internal Medicine
DX: Z00.00 Encounter for general adult medical examination without abnormal findings (principal)

== ENCOUNTER → 2025-05-03 15:59 | Outpatient (BNVA) | payer OTHER, SELFPAY | PROVIDERS: PCP Internal Medicine; Visit Provider Internal Medicine | DX: Z00.00 Encounter for general adult medical examination without abnormal findings (principal); M85.80 Other specified disorders of bone density and structure, unspecified site; E78.5 Hyperlipidemia, unspecified | CPT/HCPCS: 96127 ==

== ENCOUNTER 2025-07-05 10:58 | Outpatient (REF) | payer OTHER, SELFPAY ==
--- OUTSIDE RECORDS SUMMARY | 2025-02-21 03:30 | XMS_ITS ---
Author Organization [facility] Address [address] [place] [address] Care Team Providers Care Maintenance Director Name Role Phone Bessie Bush Primary Care Provider Unavailab Mike Us [phone] REASON FOR VISIT screening,hx polyps Encounters Encounter Location Date Provider Diagnosis [facility] Outpatient [address] [place], [place] [id number] 02/21/2025 Mike Meyers Colon cancer scree deisi Z12.11 ; History of colon polyps Z86.0100 ; Diverticulosis of colon K57.30 and Internal hemorrhoids K64.8 Assessments Encounter Date Diagnosis (ICD Code) Assessment Notes Treatment Notes Treatment Clinical Notes Section Notes 02/21/2025 Colon cancer screening (ICD-10 - Z12.11) 02/21/2025 History of colon polyps (ICD-10 - Z86.0100) 02/21/2025 Diverticulosis of colon (ICD-10 - K57.30) 02/21/2025 Internal hemorrhoids (ICD-10 - K64.8) Plan Of Treatment No Information Progress Notes * RENEE KIRK MDOB:[birth year] (75 yo F)Acc No.[id number]:02/21/2025 COLON WITH MAC Patient: RENEE [place] Provider: Patric Meyers MD :1950 A ge:74 Y S ex:Female Date:02/21/2025 Address:[address] [place], [place] [id number] Pcp:Bessie Pelayo Subjective: * Chief Complaints: * 1 . Screening,hx polyps. * Medical History: Objective: * Vitals: Assessment: * Assessment: 1. C olon cancer screening - Z12.11 (Primary) 2 . H istory of colon polyps - Z86.0100 3 . D iverticulosis of colon - K57.30 4 . I nternal hemorrhoids - K64.8 Plan: * Treatment: * Procedure Codes: 4 5378 DIAGNOSTIC COLONOSCOPY, Modifiers: 33 , 0528F RCMND FLW-UP 10 YRS DOCD * * The named appointment provid er may or may not be the originator of this progress note, and it is not deemed complete until electronically signed by the appointment provider. Sign off status: Pending * Provider: Patric Meyers MD Date: 0 02/21/2025 Generated for Rolo lee/Sulaiman/Delonitting on: 1 01:56 PM EDT
--- OUTSIDE RECORDS SUMMARY | 2025-07-05 13:56 | XMS_ITS | Clinical Summary ---
Author Organization [facility] ity Address [id number] [place] [phone] Care Team Providers Care Civil Cad Tech Name Role Phone Unavailable Primary Care Provider [...] 2000 Zoster Vaccines (1 of 2) 2000 Depression Screening 09/20/2024 RSV Immunization Adult Patie nts (1 - 1-dose 75+ series) 2025 COVID-19 Vaccine ( - 2023-2 5 season) 2025 Influenza Vaccine (#1) 2025 HIB Vaccines [...]
--- OUTSIDE RECORDS SUMMARY | 2025-07-05 13:56 | XMS_ITS | Patient Health Record ---
Author Organization [facility] Address [address] [place] [address] Care Team Providers Care Mobile Therapist Name Role Phone Bessie Bush Primary Care Provider Mike Caba Unavailable [phone] Allergies Allergen (clinical drug ingredient) Drug/Non Drug [...] UNIT 1 capsule Orally Onc e a day; Duration: 30 day(s) Active Hair Skin & Nails Advanced - as directed Orally Active Simvastatin 10 MG 1 tablet in the even ing Orally Once a day; Duration: 30 day(s) Active Super B Complex Acti [...] 1000 MG 1 tablet Orally Once a day; Duration: 30 day(s) Active Immunizations Vaccine Route Administration [...] Problem Status W/U Status Risk Notes Problem Screening for malignant neoplasm of colon (909146411) Encounter for screening for malignant neoplasm of colon (Z12.11) Active confirmed Problem History of polyp of colon (situation) (409620031) Personal history of colonic polyps (Z86.010) Active confirmed Problem Preprocedural examination ([id number]) Preprocedural examination (Z01.818) Active confirmed Vital Signs Blood pressure diastolic 11 mm Hg 11/07/2024 Height 64 in 11/07/2024 Blood pressure systolic 111 mm Hg 11/07/2024 Weight 125 lbs 11/07/2024 BMI 21.45 kg/m2 11/07/2024 Encounters Encounter Location Date Provider Diagnosis [facility] Outpatient [address] [place], [place] [id number] 02/21/2025 Mike Meyers Colon cancer screeni ng Z12.11 ; History of colon polyps Z86.0100 ; Diverticulosis of colon K57.30 and Internal hemorrhoids K64.8 [facility] [address] [place] [address] 11/07/2024 Mike Meyers Preprocedural examination Z01.818 ; [...] Insured Coverage Start Date Coverage End Date [employer] [address] [place] [phone] [id number] RENEE MACARIO Self - patient is the insured Medical (General) History Medical History History ICD Code Denies [place],DM,CVA,Lung disease,renal dise ase Hyperlipidemia Neg. screening colonoscopy [...]
[2025-07-05 14:13] LABS: Alanine Aminotransferase 27 U/L (0-31); Albumin Level 4.4 g/dL (3.5-5.0); Alkaline Phosphatase 48 U/L (39-117); Anion Gap 11 (12-20); Aspartate Amino Transferase 24 U/L (5-31); Blood Urea Nitrogen 20 mg/dL (9-16); Calcium 8.7 mg/dL (8.4-10.2); Carbon Dioxide 29 mmol/L (22-29); Chloride 108 mmol/L (96-108); Cholesterol 163 mg/dL (<200); Estimated Glomerular Filt Rate > 60; HDL Cholesterol 60 mg/dL (>40); Potassium 4.2 mmol/L (3.3-5.1); Sodium 144 mmol/L (135-145); Total Protein 6.8 g/dL (6.5-8.0); Triglycerides 74 mg/dL (<150)
== END 2025-07-05 10:59 | disposition home or self-care (01) ==
LOC: HO.10HDL 10:58
PROVIDERS: Visit Provider Internal Medicine
DX: Z00.00 Encounter for general adult medical examination without abnormal findings (principal); E78.5 Hyperlipidemia, unspecified
CPT/HCPCS: 36415; 80053; 80061